=== PATIENT | male | born 1995 | race Caucasian/White ===

== ENCOUNTER 2016-11-25 10:45 | Emergency (ER) | payer OTHER ==
--- NOTE | 2016-11-25 11:39 | DIAGNOSTIC IMAGING REPORT ---
PROCEDURE: XR CHEST 2 VIEW INDICATION: SHORTNESS OF BREATH, initial encounter. TECHNIQUE: PA and lateral view. COMPARISON: None. FINDINGS: Lungs are clear. Cardiovascular structures are normal. Bony thorax is unremarkable. IMPRESSION: 1. Negative chest.
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
--- NOTE | 2016-11-25 12:36 | ED ORDER SUMMARY ---
..... Patient: KATHARINE REAVES OrderSheet [facility] VisitID: [id number] [address] [place] [address] 21y, M Registration Date/Time: 11/25/2016 ORDER SHEET Weight: 68.0 kg (stated) Allergies: No Known Drug Allergy GENERAL ORDERS: Chest 2V Urgent (11:17 11/25/2016 Timothy RUBALCAVA) (Ack 11:19 TBermoshe) (12:07 Kriss) MEDICATION ORDERS: IV FLUIDS: ORDER SHEET NOTES: [Electronically signed by Braulio Arce R.N. (19:02 11/26/2016)] [Electronically signed by Swapnil Rush MD (12:35 11/27/2016)] [Electronically locked/signed by Braulio Arce R.N. (19:02 11/26/2016)]
--- NOTE | 2016-11-25 12:36 | ED ORDER SUMMARY ---
..... Patient: KATHARINE REAVES OrderSheet VisitID: [id number] [address] [place] [address] 21y, M Registration Date/Time: 11/25/2016 ORDER SHEET Weight: 68.0 kg (stated) Allergies: No Known Drug Allergy GENERAL ORDERS: Chest 2V Urgent (11:17 11/25/2016 Timothy RUBALCAVA) (Ack 11:19 TBermoshe) (12:07 Kriss) MEDICATION ORDERS: IV FLUIDS: ORDER SHEET NOTES: [Electronically signed by Braulio Arce R.N. (19:02 11/26/2016)] [Electronically signed by Swapnil Rush MD (12:35 11/27/2016)] [Electronically locked/signed by Braulio Arce R.N. (19:02 11/26/2016)]
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
--- NOTE | 2016-11-27 12:35 | ED MED RECONCILIATION SUMMARY ---
Patient: KATHARINE REAVES Medication Reconciliation Report [facility] VisitID: [id number] [address] [place] [address] 21y, M Registration Date/Time: 11/25/2016 Weight: 68.0 kg Height/Length: 68 in. BMI: 22.8 ALLERGIES: No Known Drug Allergy The patient's Home Medications are listed below: NONE. The source(s) of the original Home Medication information: Not obtained. The following Medications were given to the patient in the Emergency Department: None. The following Medications were prescribed to the patient: None.
--- NOTE | 2016-11-27 12:35 | ED MAR SUMMARY ---
..... Medication Administration Record [facility] [address] [place], [place] [id number] Patient: KATHARINE REAVES Visit ID: [id number] 21y, M Weight: 68.0 kg Height/Length: 68 in BMI: 22.8 ALLERGIES: No Known Drug Allergy
--- NOTE | 2016-11-27 12:35 | ED DISCHARGE INSTRUCTIONS ---
Patient: KATHARINE REAVES General Instructions [facility] VisitID: [id number] [address], [place] [address] 21y, M Registration Date/Time: 11/25/2016 Chest wall pain INSTRUCTIONS (USE IBUPROFEN FOR PARTIAL PAIN RELIEF. EXPECT SEVERAL WEEKS FOR COMPLETE RECOVERY IMMEDIATE RECHECK FOR SEVERE CHANGE IN CHEST PAIN OR SHORTNESS OF BREATH.). Understanding of the discharge instructions verbalized. Follow-up with: [facility], , , [address], , [place], [id number] Follow up. Reason for referral: ESTABLISH PRIMARY CARE ADDITIONAL INFORMATION Chest Wall Pain: Costochondritis The chest pain that you have had today is caused by Costochondritis. This condition is due to an inflammation of the cartilage joining the ribs to the breastbone. It is not caused by heart or lung problems. Although the exact cause for costochondritis is not known, it often occurs during times of emotional stress. It can be painful, but it is not dangerous. It usually disappears within one to two weeks, but may recur. Rarely, a more serious condition may cause symptoms similar to costochondritis; therefore, watch for the warning signs listed below. Home Care: If you feel that emotional stress is a cause of your condition, try to identify sources of that stress. It may not be obvious! Learn ways to deal with the stress in your life such as regular exercise, muscle relaxation, meditation, or simply taking time out for yourself. For more information about this, consult your doctor or go to a local bookstore and review books and tapes available on the subject of stress reduction. You may use acetaminophen (Tylenol) or ibuprofen (Motrin, Advil) to control pain, unless another pain medicine was prescribed. [ NOTE: If you have liver disease or ever had a stomach ulcer, talk with your doctor before using these medicines.] The use of heat (hot wet compress or heating pad) with or without local analgesic creams (Deep Heat Rub, [place]) will be helpful to reduce pain. Follow Up with your doctor as directed or sooner if you do not start to improve within the next two days. Get Prompt Medical Attention if any of the following occur: A change in the type of pain: if it feels different, becomes more severe, lasts longer, or spreads into your shoulder, arm, neck, jaw or back Shortness of breath or increased pain with breathing Weakness, dizziness, or fainting Cough with dark colored sputum (phlegm) or blood Abdominal pain Dark red or black stools Fever of 100.4F (38C) or higher, or as directed by your healthcare provider You have been given the following additional information: Chest Wall Pain, Costochondritis (Electronically signed by Swapnil Rush MD 11/27/2016 12:35)
--- NOTE | 2016-11-27 12:35 | ED MAR SUMMARY ---
..... Medication Administration Record [facility] [address] [place], [place] [id number] Patient: KATHARINE REAVES Visit ID: [id number] 21y, M Weight: 68.0 kg Height/Length: 68 in BMI: 22.8 ALLERGIES: No Known Drug Allergy
--- NOTE | 2016-11-27 12:35 | ED MED RECONCILIATION SUMMARY ---
Patient: KATHARINE REAVES Medication Reconciliation Report [facility] VisitID: [id number] [address] [address] 21y, M Registration Date/Time: 11/25/2016 Weight: 68.0 kg Height/Length: 68 in. BMI: 22.8 ALLERGIES: No Known Drug Allergy The patient's Home Medications are listed below: NONE. The source(s) of the original Home Medication information: Not obtained. The following Medications were given to the patient in the Emergency Department: None. The following Medications were prescribed to the patient: None.
--- NOTE | 2016-11-27 12:35 | ED DISCHARGE INSTRUCTIONS ---
Patient: KATHARINE REAVES General Instructions [facility] VisitID: [id number] [address], [place] [address] 21y, M Registration Date/Time: 11/25/2016 Chest wall pain INSTRUCTIONS (USE IBUPROFEN FOR PARTIAL PAIN RELIEF. EXPECT SEVERAL WEEKS FOR COMPLETE RECOVERY IMMEDIATE RECHECK FOR SEVERE CHANGE IN CHEST PAIN OR SHORTNESS OF BREATH.). Understanding of the discharge instructions verbalized. Follow-up with: [facility], , , [address], , [place], [id number] Follow up. Reason for referral: ESTABLISH PRIMARY CARE ADDITIONAL INFORMATION Chest Wall Pain: Costochondritis The chest pain that you have had today is caused by Costochondritis. This condition is due to an inflammation of the cartilage joining the ribs to the breastbone. It is not caused by heart or lung problems. Although the exact cause for costochondritis is not known, it often occurs during times of emotional stress. It can be painful, but it is not dangerous. It usually disappears within one to two weeks, but may recur. Rarely, a more serious condition may cause symptoms similar to costochondritis; therefore, watch for the warning signs listed below. Home Care: If you feel that emotional stress is a cause of your condition, try to identify sources of that stress. It may not be obvious! Learn ways to deal with the stress in your life such as regular exercise, muscle relaxation, meditation, or simply taking time out for yourself. For more information about this, consult your doctor or go to a local bookstore and review books and tapes available on the subject of stress reduction. You may use acetaminophen (Tylenol) or ibuprofen (Motrin, Advil) to control pain, unless another pain medicine was prescribed. [ NOTE: If you have liver disease or ever had a stomach ulcer, talk with your doctor before using these medicines.] The use of heat (hot wet compress or heating pad) with or without local analgesic creams (Deep Heat Rub, Tin [place]) will be helpful to reduce pain. Follow Up with your doctor as directed or sooner if you do not start to improve within the next two days. Get Prompt Medical Attention if any of the following occur: A change in the type of pain: if it feels different, becomes more severe, lasts longer, or spreads into your shoulder, arm, neck, jaw or back Shortness of breath or increased pain with breathing Weakness, dizziness, or fainting Cough with dark colored sputum (phlegm) or blood Abdominal pain Dark red or black stools Fever of 100.4F (38C) or higher, or as directed by your healthcare provider You have been given the following additional information: Chest Wall Pain, Costochondritis (Electronically signed by Swapnil Rush MD 11/27/2016 12:35)
== END 2016-11-25 12:25 | disposition home or self-care (01) ==
LOC: ED SRH 10:45
DX: R07.89 Other chest pain (principal); F17.210 Nicotine dependence, cigarettes, uncomplicated